=== PATIENT | male | born 1960 | race African-American/Black ===

== ENCOUNTER → 2016-04-29 | Outpatient (CLI) | payer OTHER ==
[~2016-04-29] MED LIST: ALPRAZOLAM2 MG PO; AMLODIPINE BESY10 MG PO; AUGMENTIN875 MG PO; COLACE100 MG PO; ENDOCET 5-3251 EACH PO; FINASTERIDE5 MG PO; GABAPENTIN600 MG PO; GABAPENTIN800 MG PO; HUMALOG100 UNIT/2 SC; HUMULIN N100 UNIT/2 SC; KEFLEX500 MG PO; LANTUS 10100 UNITS/ SC; LANTUS 3 M100 UNITS1 SQ; LIBRIUM25 MG PO; LISINOPRIL40 MG PO; MELOXICAM7.5 MG PO; METFORMIN HCL1000 MG PO; MONTELUKAST SOD10 MG PO; MORPHINE SULFAT15 M1 PO; OMEPRAZOLE40 M1 PO; OXAYDO5 MG PO; OXYCODONE HCL10 MG PO; ULTRAM50 MG PO; VALSARTAN160 MG PO; VYVANSE70 MG PO
== END | disposition home or self-care (01) ==
LOC: CDC 09:47
DX: Z01.810 Encounter for preprocedural cardiovascular examination (principal); K40.90 Unilateral inguinal hernia, without obstruction or gangrene, not specified as recurrent
CPT/HCPCS: 93000

== ENCOUNTER 2016-04-30 08:54 | Day surgery (SDC) | payer OTHER ==
[~2016-04-30] VITALS: Ht 190.5 cm; Wt 95.3 kg
[~2016-04-30 08:54] MED LIST changes: -AUGMENTIN875 MG PO; -COLACE100 MG PO; -LANTUS 3 M100 UNITS1 SQ; -OXAYDO5 MG PO
[2016-04-30 10:12] VITALS: BP 139/91
[2016-04-30 10:54] LABS: POINT-OF-CARE METER ID UU14174212
[2016-04-30] MEDS ORDERED: LANTUS 3 M100 UNITS1 SQ (10:54)
[2016-04-30 13:08] LABS: POINT-OF-CARE METER ID UU13113655; POINT-OF-CARE USER ID ENVKLS06
[2016-04-30 13:08] LABS: POINT-OF-CARE METER ID UU13113655; POINT-OF-CARE USER ID ENVKLS06
[2016-04-30] MEDS ORDERED: OXAYDO5 MG PO (14:19)
[2016-04-30] MEDS ORDERED: COLACE100 MG PO (14:19)
[2016-04-30 15:35] VITALS: BP 175/92
[2016-04-30 16:19] VITALS: BP 181/92
== END 2016-04-30 16:20 | disposition home or self-care (01) ==
LOC: SDC 08:54
PROVIDERS: Surgery
PROC: 0YQ50ZZ Repair Right Inguinal Region, Open Approach (ICD-10-PCS; principal; 2016-04-30)
DX: K40.90 Unilateral inguinal hernia, without obstruction or gangrene, not specified as recurrent (principal); D17.6 Benign lipomatous neoplasm of spermatic cord; F17.200 Nicotine dependence, unspecified, uncomplicated; K21.9 Gastro-esophageal reflux disease without esophagitis; M51.36 Other intervertebral disc degeneration, lumbar region; I10 Essential (primary) hypertension; E11.40 Type 2 diabetes mellitus with diabetic neuropathy, unspecified
CPT/HCPCS: 82948; 88302; 88304; C1781; J0330; J0690; J1170; J1815; J1885; J2250; J2405; J3010

== ENCOUNTER 2016-05-01 01:55 | Day surgery (SDC) | payer OTHER ==
[~2016-05-01] VITALS: Ht 190.5 cm; Wt 92.6 kg
[~2016-05-01 01:55] MED LIST changes: +COLACE100 MG PO; +LANTUS 3 M100 UNITS1 SQ; +OXAYDO5 MG PO
[2016-05-01 02:27] LABS: HEMATOCRIT 35.9 % (38.0-50.0); MCH 30.7 PG (29.0-34.0); MCHC 34.8 G/DL (30.0-36.0); MCV 88.2 FL (86-99); MEAN PLAT.VOLUME 10.2 uM^3 (9.0-12.4); PLATELET COUNT 177 K/uL (156-360); RBC DIS.WIDTH-CV 12.8 % (11.8-14.6); RBC DIS.WIDTH-SD 40.3 % (39-53); RED BLOOD COUNT 4.07 M/uL (4.00-5.50); WHITE BLOOD COUNT 8.4 K/uL (4.1-10.2)
[2016-05-01 02:36] LABS: CHLORIDE 97 mEq/L (99-109); POTASSIUM 4.1 mEq/L (3.7-5.4); SODIUM 131 mEq/L (136-147)
[2016-05-01 02:38] LABS: GLUCOSE 273 mg/dL (70-99)
[2016-05-01 02:39] LABS: ANION GAP 16 MEQ/L (2-14)
[2016-05-01 02:40] LABS: TOTAL BILIRUBIN 0.7 mg/dL (0.0-1.0)
[2016-05-01 02:41] LABS: ALKALINE PHOSPHATASE 63 IU/L (3-129)
[2016-05-01 02:42] LABS: GFR ESTIMATE (CALCULATED) > 59 mL/min/
[2016-05-01 02:43] LABS: UREA NITROGEN (BUN) 8 mg/dL (9-23)
[2016-05-01 02:45] LABS: LIPASE 5 U/L (1.0-51.0)
[2016-05-01 04:24] LABS: PROTHROMBIN TIME 10.4 (9.2-11.2); PTT 23.5 (25-32)
[2016-05-01 04:59] LABS: ADD MIUA? NO; BILIRUBIN NEGATIVE; BLOOD NEGATIVE; COLOR YELLOW ((YELLOW)); GLUCOSE (STRIP) >=1000; KETONES 40; LEUKOCYTES NEGATIVE; NITRITE NEGATIVE; PROTEIN (STRIP) NEGATIVE; UCUL ADDED? NO; UROBILINOGEN 0.2 MG/DL (0.2-1.0)
[2016-05-01 15:00] VITALS: BP 171/87
[2016-05-01 15:11] LABS: MCH 30.7 PG (29.0-34.0); MCHC 34.1 G/DL (30.0-36.0); MCV 90.1 FL (86-99); MEAN PLAT.VOLUME 10.1 uM^3 (9.0-12.4); PLATELET COUNT 134 K/uL (156-360); RBC DIS.WIDTH-CV 13.2 % (11.8-14.6); RBC DIS.WIDTH-SD 43.5 % (39-53); RED BLOOD COUNT 3.55 M/uL (4.00-5.50); WHITE BLOOD COUNT 6.3 K/uL (4.1-10.2)
[2016-05-01 15:33] LABS: ALKALINE PHOSPHATASE 44 IU/L (3-129); ANION GAP 7 MEQ/L (2-14); CHLORIDE 98 MEQ/L (99-109); GFR ESTIMATE (CALCULATED) > 59 mL/min/; GLUCOSE 169 mg/dL (70-99); POTASSIUM 4.1 MEQ/L (3.7-5.4); SAMPLE HEMOLYSIS CHECK 0; SAMPLE ICTERIC CHECK 0; SAMPLE LIPEMIA CHECK 0; SODIUM 134 MEQ/L (136-147); TOTAL BILIRUBIN 0.6 MG/DL (0.0-1.0); UREA NITROGEN (BUN) 7 mg/dL (9-23)
[2016-05-01 20:04] VITALS: BP 142/81
[2016-05-01 22:59] VITALS: BP 132/81
[2016-05-02 06:48] LABS: HEMATOCRIT 30.7 % (38.0-50.0); MCH 30.8 PG (29.0-34.0); MCHC 34.2 G/DL (30.0-36.0); PLATELET COUNT 141 K/uL (156-360); RBC DIS.WIDTH-CV 13.2 % (11.8-14.6); RBC DIS.WIDTH-SD 42.9 % (39-53); RED BLOOD COUNT 3.41 M/uL (4.00-5.50); WHITE BLOOD COUNT 7.8 K/uL (4.1-10.2)
[2016-05-02 07:01] LABS: INTER. NORMALIZED RATIO 1.1; PROTHROMBIN TIME 10.7 (9.2-11.2); PTT 27.3 (25-32)
[2016-05-02] MEDS ORDERED: AUGMENTIN875 MG PO (07:43)
[2016-05-02 08:02] VITALS: BP 147/80
[2016-05-02 08:59] LABS: ALKALINE PHOSPHATASE 45 IU/L (3-129); ANION GAP 4 MEQ/L (2-14); CHLORIDE 98 MEQ/L (99-109); GFR ESTIMATE (CALCULATED) > 59 mL/min/; GLUCOSE 168 mg/dL (70-99); SAMPLE HEMOLYSIS CHECK 0; SAMPLE ICTERIC CHECK 0; SAMPLE LIPEMIA CHECK 0; SODIUM 132 MEQ/L (136-147); TOTAL BILIRUBIN 0.6 MG/DL (0.0-1.0); UREA NITROGEN (BUN) 6 mg/dL (9-23)
== END 2016-05-02 09:20 | disposition home or self-care (01) ==
LOC: EME → EDBD 01:55 → SDC 06:05 → EME 06:05 → 2EAST 07:30 → 2SOUTH 07:30 → 2EAST 14:58
PROVIDERS: Emergency Medicine; Surgery
DX: M96.840 Postprocedural hematoma of a musculoskeletal structure following a musculoskeletal system procedure (principal); Y83.8 Other surgical procedures as the cause of abnormal reaction of the patient, or of later complication, without mention of misadventure at the time of the procedure; Z98.890 Other specified postprocedural states; I10 Essential (primary) hypertension; E11.40 Type 2 diabetes mellitus with diabetic neuropathy, unspecified; K21.9 Gastro-esophageal reflux disease without esophagitis; F31.9 Bipolar disorder, unspecified; M54.5 Low back pain
CPT/HCPCS: 74177; 80053; 81003; 82948; 83605; 83690; 85027; 85610; 85730; 86850; 86900; 86901; 93005; 99281; 99285; G0378; J0330; J0690; J1170; J1200; J1815; J2270; J2405; J3010; J3480; J7030

== ENCOUNTER 2016-06-05 16:25 | Emergency (ER) | payer OTHER ==
[~2016-06-05] VITALS: Ht 190.5 cm; Wt 90.0 kg
[~2016-06-05 16:25] MED LIST changes: +AUGMENTIN875 MG PO
[2016-06-05] MEDS ORDERED: LANTUS 10100 UNITS/ SC (17:33)
[2016-06-05] MEDS ORDERED: NOVOLOG PE100 UNITS/ SC (17:33)
[2016-06-05 17:38] LABS: HEMATOCRIT 38.2 % (38.0-50.0); MCH 29.5 PG (29.0-34.0); MCV 86.6 FL (86-99); MEAN PLAT.VOLUME 9.5 uM^3 (9.0-12.4); PLATELET COUNT 183 K/uL (156-360); RBC DIS.WIDTH-SD 43.6 % (39-53); RED BLOOD COUNT 4.41 M/uL (4.00-5.50); WHITE BLOOD COUNT 5.6 K/uL (4.1-10.2)
[2016-06-05 17:46] LABS: CHLORIDE 103 mEq/L (99-109); POTASSIUM 4.5 mEq/L (3.7-5.4); SODIUM 137 mEq/L (136-147)
[2016-06-05 17:48] LABS: GLUCOSE 393 mg/dL (70-99)
[2016-06-05 17:49] LABS: ANION GAP 12 MEQ/L (2-14)
[2016-06-05 17:52] LABS: GFR ESTIMATE (CALCULATED) > 59 mL/min/
[2016-06-05 17:53] LABS: UREA NITROGEN (BUN) 13 mg/dL (9-23)
[2016-06-05] MEDS ORDERED: CLEOCIN300 MG PO (19:47)
[2016-06-05 20:01] VITALS: BP 150/92
== END 2016-06-05 20:04 | disposition home or self-care (01) ==
LOC: EME 16:25
PROVIDERS: Physician Assistant
DX: E11.621 Type 2 diabetes mellitus with foot ulcer (principal); L97.519 Non-pressure chronic ulcer of other part of right foot with unspecified severity; Z79.4 Long term (current) use of insulin; L03.115 Cellulitis of right lower limb; F17.200 Nicotine dependence, unspecified, uncomplicated; I10 Essential (primary) hypertension
CPT/HCPCS: 73630; 80048; 83605; 85027; 87040; 99281; 99285; J7030

== ENCOUNTER 2016-08-31 07:51 | Emergency (ER) | payer OTHER ==
[~2016-08-31] VITALS: Ht 190.5 cm; Wt 90.9 kg
[~2016-08-31 07:51] MED LIST changes: +CLEOCIN300 MG PO; +NOVOLOG PE100 UNITS/ SC
[2016-08-31 08:34] LABS: EOSINOPHIL COUNT 0.2 K/uL (0-0.3); HEMATOCRIT 44.7 % (38.0-50.0); IMMATURE GRANULOCYTE (%) 0.3 % (0.0-0.7); INSTRUMENT ABS NEUTROPHIL CT 4.6 K/uL; LYMPHOCYTE COUNT 1.8 K/uL (1.0-2.8); MCH 28.6 PG (29.0-34.0); MEAN PLAT.VOLUME 9.5 uM^3 (9.0-12.4); MONOCYTE (%) 10.6 % (3-12); MONOCYTE COUNT 0.8 K/uL (0-0.8); NEUTROPHIL (%) 62.3 % (45-76); NEUTROPHIL COUNT 4.6 K/uL (1.8-6.4); PLATELET COUNT 178 K/uL (156-360); RBC DIS.WIDTH-CV 14.6 % (11.8-14.6); RBC DIS.WIDTH-SD 44.3 % (39-53); RED BLOOD COUNT 5.32 M/uL (4.00-5.50); WHITE BLOOD COUNT 7.5 K/uL (4.1-10.2)
[2016-08-31 08:42] LABS: CHLORIDE 102 mEq/L (99-109)
[2016-08-31 08:43] LABS: SODIUM 135 mEq/L (136-147)
[2016-08-31 08:44] LABS: GLUCOSE 253 mg/dL (70-99)
[2016-08-31 08:46] LABS: ANION GAP 10 MEQ/L (2-14)
[2016-08-31 08:48] LABS: GFR ESTIMATE (CALCULATED) > 59 mL/min/
[2016-08-31 08:49] LABS: UREA NITROGEN (BUN) 10 mg/dL (9-23)
[2016-08-31 09:45] VITALS: BP 158/96
[2016-08-31 10:13] LABS: C-REACTIVE PROTEIN 38.2 MG/L (0-10)
== END 2016-08-31 09:46 | disposition home or self-care (01) ==
LOC: EME 07:51
PROVIDERS: Physician Assistant
DX: E11.621 Type 2 diabetes mellitus with foot ulcer (principal); L97.519 Non-pressure chronic ulcer of other part of right foot with unspecified severity; E11.628 Type 2 diabetes mellitus with other skin complications; L03.031 Cellulitis of right toe; E11.40 Type 2 diabetes mellitus with diabetic neuropathy, unspecified; Z88.6 Allergy status to analgesic agent; Z79.84 Long term (current) use of oral hypoglycemic drugs; Z79.4 Long term (current) use of insulin; F17.200 Nicotine dependence, unspecified, uncomplicated
CPT/HCPCS: 73660; 80048; 85025; 86140; 99281; 99283

== ENCOUNTER 2016-09-03 17:06 | Inpatient (IN) | payer OTHER ==
[~2016-09-03] VITALS: Ht 193 cm; Wt 85.6 kg
[2016-09-03 18:08] LABS: EOSINOPHIL (%) 3.5 % (0-5); EOSINOPHIL COUNT 0.3 K/uL (0-0.3); HEMATOCRIT 43.6 % (38.0-50.0); IMMATURE GRANULOCYTE (%) 0.3 % (0.0-0.7); INSTRUMENT ABS NEUTROPHIL CT 4.5 K/uL; LYMPHOCYTE COUNT 1.8 K/uL (1.0-2.8); MCH 28.3 PG (29.0-34.0); MCHC 33.3 G/DL (30.0-36.0); MONOCYTE (%) 8.9 % (3-12); MONOCYTE COUNT 0.6 K/uL (0-0.8); NEUTROPHIL (%) 62.4 % (45-76); NEUTROPHIL COUNT 4.5 K/uL (1.8-6.4); PLATELET COUNT 206 K/uL (156-360); RBC DIS.WIDTH-CV 14.3 % (11.8-14.6); RBC DIS.WIDTH-SD 43.9 % (39-53); RED BLOOD COUNT 5.13 M/uL (4.00-5.50); WHITE BLOOD COUNT 7.2 K/uL (4.1-10.2)
[2016-09-03 18:19] LABS: CHLORIDE 99 mEq/L (99-109); POTASSIUM 4.5 mEq/L (3.7-5.4); SODIUM 133 mEq/L (136-147)
[2016-09-03 18:22] LABS: ANION GAP 13 MEQ/L (2-14)
[2016-09-03 18:25] LABS: GFR ESTIMATE (CALCULATED) > 59 mL/min/
[2016-09-03 18:33] LABS: UREA NITROGEN (BUN) 23 mg/dL (9-23)
[2016-09-03 18:40] LABS: GLUCOSE 445 mg/dL (70-99)
[2016-09-03 19:02] LABS: CARBON DIOXIDE (BICARBONATE) 24.9 MEQ/L (20-31)
[2016-09-03] MEDS ORDERED: TRAMADOL HCL50 MG PO (20:59)
[2016-09-03] MEDS ORDERED: AMOX TR-K CLV1 EAC4 PO (20:59)
[2016-09-03 22:00] VITALS: BP 168/99
[2016-09-03 23:00] VITALS: BP 171/113
[2016-09-03 23:19] LABS: C-REACTIVE PROTEIN 45.1 MG/L (0-10)
[2016-09-03 23:53] LABS: POINT-OF-CARE METER ID UU13113725
[2016-09-04 00:19] VITALS: BP 154/78
[2016-09-04 00:23] LABS: ERTH.SED.RATE 59 MM/HR (0-20)
[2016-09-04 04:15] VITALS: BP 139/72
[2016-09-04 06:06] LABS: POINT-OF-CARE METER ID UU13113725
[2016-09-04 07:52] VITALS: BP 137/78
[2016-09-04 08:39] LABS: EOSINOPHIL (%) 3.6 % (0-5); EOSINOPHIL COUNT 0.2 K/uL (0-0.3); IMMATURE GRANULOCYTE (%) 0.3 % (0.0-0.7); INSTRUMENT ABS NEUTROPHIL CT 3.5 K/uL; LYMPHOCYTE COUNT 1.9 K/uL (1.0-2.8); MCH 28.8 PG (29.0-34.0); MCHC 33.2 G/DL (30.0-36.0); MEAN PLAT.VOLUME 10.2 uM^3 (9.0-12.4); MONOCYTE (%) 9.9 % (3-12); MONOCYTE COUNT 0.6 K/uL (0-0.8); NEUTROPHIL (%) 55.7 % (45-76); NEUTROPHIL COUNT 3.5 K/uL (1.8-6.4); PLATELET COUNT 175 K/uL (156-360); RBC DIS.WIDTH-CV 14.4 % (11.8-14.6); RBC DIS.WIDTH-SD 46.2 % (39-53); RED BLOOD COUNT 4.37 M/uL (4.00-5.50); WHITE BLOOD COUNT 6.4 K/uL (4.1-10.2)
[2016-09-04 09:09] LABS: ANION GAP 9 MEQ/L (2-14); CHLORIDE 99 MEQ/L (99-109); GFR ESTIMATE (CALCULATED) > 59 mL/min/; POTASSIUM 4.3 MEQ/L (3.7-5.4); SAMPLE HEMOLYSIS CHECK 0; SAMPLE ICTERIC CHECK 0; SAMPLE LIPEMIA CHECK 0; SODIUM 133 MEQ/L (136-147); UREA NITROGEN (BUN) 13 mg/dL (9-23)
[2016-09-04 09:14] LABS: GLUCOSE 219 mg/dL (70-99)
[2016-09-04] MEDS ORDERED: GABAPENTIN300 MG PO (11:17)
[2016-09-04] MEDS ORDERED: EXTRA STRENGTH500 M1 PO (11:18)
[2016-09-04] MEDS ORDERED: VALSARTAN160 MG PO (11:22)
[2016-09-04] MEDS ORDERED: OMEPRAZOLE40 M1 PO (11:22)
[2016-09-04] MEDS ORDERED: METFORMIN HCL500 MG PO (11:23)
[2016-09-04] MEDS ORDERED: FINASTERIDE5 MG PO (11:23)
[2016-09-04] MEDS ORDERED: NORVASC10 MG PO (11:24)
[2016-09-04] MEDS ORDERED: SINGULAIR10 MG PO (11:24)
[2016-09-04] MEDS ORDERED: ATORVASTATIN CA20 MG PO (11:24)
[2016-09-04] MEDS ORDERED: METFORMIN HCL1000 MG PO (11:48)
[2016-09-05] MEDS ORDERED: HIBICLENS118 ML TP (13:58)
[2016-09-05] MEDS ORDERED: BACTRIM,SEPT1 TABLET PO (13:58)
[2016-09-05] MEDS ORDERED: PAIN RELIEF650 MG PO (13:58)
[2016-09-05] MEDS ORDERED: NICOTINE PATCH1 EAC2 TD (13:58)
[2016-09-05] MEDS ORDERED: [UNRECOGNIZED DRUG - OTHER] MC (14:04)
== END 2016-09-04 07:52 | disposition left against medical advice (07) | DRG 603 ==
LOC: EME → EDBD 17:06 → EME 17:06 → EDOF 21:24 → 5EAST 21:24
PROVIDERS: Emergency Medicine; Hospitalist
DX: L03.031 Cellulitis of right toe (principal); E11.628 Type 2 diabetes mellitus with other skin complications; E11.65 Type 2 diabetes mellitus with hyperglycemia; I10 Essential (primary) hypertension; S90.451A Superficial foreign body, right great toe, initial encounter; F17.210 Nicotine dependence, cigarettes, uncomplicated
CPT/HCPCS: 80048; 82803; 82948; 83605; 85025; 85651; 86140; 87040; 93971; 99281; 99285; J0295; J1170; J1650; J1815; J2543; J3010; J3370; J7030; J7050; J7120

== ENCOUNTER 2016-09-04 09:56 | Observation (INO) | payer OTHER ==
[~2016-09-04] VITALS: Ht 190.5 cm; Wt 88.8 kg
[~2016-09-04 09:56] MED LIST changes: +AMOX TR-K CLV1 EAC4 PO; +TRAMADOL HCL50 MG PO
[2016-09-04 11:01] LABS: EOSINOPHIL (%) 5.2 % (0-5); EOSINOPHIL COUNT 0.3 K/uL (0-0.3); HEMATOCRIT 38.9 % (38.0-50.0); IMMATURE GRANULOCYTE (%) 0.4 % (0.0-0.7); INSTRUMENT ABS NEUTROPHIL CT 2.8 K/uL; LYMPHOCYTE COUNT 1.7 K/uL (1.0-2.8); MCH 28.1 PG (29.0-34.0); MCHC 33.2 G/DL (30.0-36.0); MCV 84.7 FL (86-99); MEAN PLAT.VOLUME 9.5 uM^3 (9.0-12.4); MONOCYTE (%) 10.1 % (3-12); MONOCYTE COUNT 0.5 K/uL (0-0.8); NEUTROPHIL (%) 51.5 % (45-76); NEUTROPHIL COUNT 2.8 K/uL (1.8-6.4); PLATELET COUNT 170 K/uL (156-360); RBC DIS.WIDTH-CV 14.1 % (11.8-14.6); RBC DIS.WIDTH-SD 43.7 % (39-53); RED BLOOD COUNT 4.59 M/uL (4.00-5.50); WHITE BLOOD COUNT 5.3 K/uL (4.1-10.2)
[2016-09-04 11:12] LABS: CHLORIDE 103 mEq/L (99-109); POTASSIUM 4.6 mEq/L (3.7-5.4); SODIUM 134 mEq/L (136-147)
[2016-09-04 11:13] LABS: GLUCOSE 152 mg/dL (70-99)
[2016-09-04 11:15] LABS: ANION GAP 10 MEQ/L (2-14)
[2016-09-04 11:17] LABS: GFR ESTIMATE (CALCULATED) > 59 mL/min/
[2016-09-04] MEDS ORDERED: GABAPENTIN300 MG PO (11:17)
[2016-09-04 11:18] LABS: UREA NITROGEN (BUN) 11 mg/dL (9-23)
[2016-09-04] MEDS ORDERED: EXTRA STRENGTH500 M1 PO (11:18)
[2016-09-04] MEDS ORDERED: OMEPRAZOLE40 M1 PO (11:22)
[2016-09-04] MEDS ORDERED: VALSARTAN160 MG PO (11:22)
[2016-09-04] MEDS ORDERED: METFORMIN HCL500 MG PO (11:23)
[2016-09-04] MEDS ORDERED: FINASTERIDE5 MG PO (11:23)
[2016-09-04] MEDS ORDERED: NORVASC10 MG PO (11:24)
[2016-09-04] MEDS ORDERED: SINGULAIR10 MG PO (11:24)
[2016-09-04] MEDS ORDERED: ATORVASTATIN CA20 MG PO (11:24)
[2016-09-04] MEDS ORDERED: METFORMIN HCL1000 MG PO (11:48)
[2016-09-04 20:00] VITALS: BP 129/70
[2016-09-04 21:11] LABS: POINT-OF-CARE METER ID UU13113725
[2016-09-05 00:05] VITALS: BP 140/84
[2016-09-05 06:13] LABS: POINT-OF-CARE METER ID UU13113725
[2016-09-05 07:19] VITALS: BP 155/86
[2016-09-05 12:58] LABS: GFR ESTIMATE (CALCULATED) > 59 mL/min/
[2016-09-05 12:59] LABS: UREA NITROGEN (BUN) 11 mg/dL (9-23)
[2016-09-05] MEDS ORDERED: HIBICLENS118 ML TP (13:58)
[2016-09-05] MEDS ORDERED: BACTRIM,SEPT1 TABLET PO (13:58)
[2016-09-05] MEDS ORDERED: NICOTINE PATCH1 EAC2 TD (13:58)
[2016-09-05] MEDS ORDERED: PAIN RELIEF650 MG PO (13:58)
[2016-09-05] MEDS ORDERED: [UNRECOGNIZED DRUG - OTHER] MC (14:04)
== END 2016-09-05 16:39 | disposition home or self-care (01) ==
LOC: EME 09:56 → 5EAST 10:39 → EDOF 10:39 → 5EAST 10:39
PROVIDERS: Emergency Medicine; Hospitalist; Internal Medicine
DX: L03.115 Cellulitis of right lower limb (principal); E11.622 Type 2 diabetes mellitus with other skin ulcer; L97.519 Non-pressure chronic ulcer of other part of right foot with unspecified severity; E11.65 Type 2 diabetes mellitus with hyperglycemia; F17.200 Nicotine dependence, unspecified, uncomplicated; I10 Essential (primary) hypertension
CPT/HCPCS: 73720; 80048 91; 82565; 82948; 84520; 85025 91; 87040; 87070; 87075; 87076; 87077; 87147; 87186; 87205; 93926; G0378; J1650; J1815; J2543; J3370; J7050

== ENCOUNTER 2017-04-19 15:31 | Emergency (ER) | payer OTHER ==
[~2017-04-19] VITALS: Ht 190.5 cm; Wt 90.3 kg
[~2017-04-19 15:31] MED LIST changes: +ATORVASTATIN CA20 MG PO; +BACTRIM,SEPT1 TABLET PO; +EXTRA STRENGTH500 M1 PO; +GABAPENTIN300 MG PO; +HIBICLENS118 ML TP; +METFORMIN HCL500 MG PO; +NICOTINE PATCH1 EAC2 TD; +NORVASC10 MG PO; +PAIN RELIEF650 MG PO; +SINGULAIR10 MG PO; +[UNRECOGNIZED DRUG - OTHER] MC
[2017-04-19 16:40] LABS: BASOPHIL (%) 0.6 % (0-1); EOSINOPHIL (%) 3.6 % (0-5); EOSINOPHIL COUNT 0.2 K/uL (0-0.3); HEMATOCRIT 41.2 % (38.0-50.0); HEMOGLOBIN 14.1 G/DL (12.5-16.6); IMMATURE GRANULOCYTE (%) 0.2 % (0.0-0.7); LYMPHOCYTE (%) 42.8 % (15-42); MCH 29.9 PG (29.0-34.0); MCHC 34.2 G/DL (30.0-36.0); MCV 87.5 FL (86-99); MONOCYTE COUNT 0.5 K/uL (0-0.8); NEUTROPHIL (%) 41.8 % (45-76); PLATELET COUNT 178 K/uL (156-360); RBC DIS.WIDTH-CV 13.2 % (11.8-14.6); RBC DIS.WIDTH-SD 42.6 % (39-53); RED BLOOD COUNT 4.71 M/uL (4.00-5.50); WHITE BLOOD COUNT 4.7 K/uL (4.1-10.2)
[2017-04-19 16:51] LABS: CHLORIDE 103 mEq/L (99-109); POTASSIUM 4.5 mEq/L (3.7-5.4); SODIUM 133 mEq/L (136-147)
[2017-04-19 16:57] LABS: GFR ESTIMATE (CALCULATED) > 59 mL/min/ (58.99-99999)
[2017-04-19 16:58] LABS: UREA NITROGEN (BUN) 18 mg/dL (9-23)
[2017-04-19 17:07] LABS: GLUCOSE 426 mg/dL (70-99)
[2017-04-19 17:19] VITALS: BP 158/96
[2017-04-19 18:05] LABS: ERTH.SED.RATE 14 MM/HR (0-20)
== END 2017-04-19 17:20 | disposition left against medical advice (07) ==
LOC: EME 15:31
PROVIDERS: Emergency Medicine
DX: E11.40 Type 2 diabetes mellitus with diabetic neuropathy, unspecified (principal); M79.605 Pain in left leg; M79.604 Pain in right leg; I10 Essential (primary) hypertension; E78.5 Hyperlipidemia, unspecified; K21.9 Gastro-esophageal reflux disease without esophagitis; F32.9 Major depressive disorder, single episode, unspecified; F17.200 Nicotine dependence, unspecified, uncomplicated; Z79.4 Long term (current) use of insulin; Z88.6 Allergy status to analgesic agent
CPT/HCPCS: 73630; 80048; 82948; 85025; 85651; 86140; 99281; 99283

== ENCOUNTER 2017-07-10 18:45 | Emergency (ER) | payer OTHER ==
[~2017-07-10] VITALS: Ht 190.5 cm; Wt 94.5 kg
[2017-07-10] MEDS ORDERED: BACTRIM,SEPT1 TABLET PO (19:37)
[2017-07-10 20:22] VITALS: BP 132/79
== END 2017-07-10 20:25 | disposition home or self-care (01) ==
LOC: EME 18:45
DX: E11.621 Type 2 diabetes mellitus with foot ulcer (principal); L97.519 Non-pressure chronic ulcer of other part of right foot with unspecified severity; L03.115 Cellulitis of right lower limb; I10 Essential (primary) hypertension; K21.9 Gastro-esophageal reflux disease without esophagitis; E78.5 Hyperlipidemia, unspecified; F32.9 Major depressive disorder, single episode, unspecified; F17.200 Nicotine dependence, unspecified, uncomplicated; Z79.4 Long term (current) use of insulin; Z88.6 Allergy status to analgesic agent
CPT/HCPCS: 99281; 99284

== ENCOUNTER 2017-07-29 14:38 | Emergency (ER) | payer OTHER ==
[~2017-07-29] VITALS: Ht 190.5 cm; Wt 96.4 kg
[2017-07-29 15:00] LABS: APPEARANCE CLEAR ((CLEAR)); BILIRUBIN NEGATIVE; BLOOD NEGATIVE; COLOR YELLOW ((YELLOW)); GLUCOSE (STRIP) >=500; KETONES NEGATIVE; LEUKOCYTES NEGATIVE; NITRITE NEGATIVE; PROTEIN (STRIP) NEGATIVE; SPECIFIC GRAVITY 1.031 (1.000-1.030); UCUL ADDED? NO; UROBILINOGEN 0.2 MG/DL (0.2-1.0)
[2017-07-29 15:14] LABS: HEMOGLOBIN 15.3 G/DL (12.5-16.6); MCH 30.4 PG (29.0-34.0); MCHC 34.8 G/DL (30.0-36.0); MCV 87.5 FL (86-99); PLATELET COUNT 204 K/uL (156-360); RBC DIS.WIDTH-CV 13.3 % (11.8-14.6); RED BLOOD COUNT 5.03 M/uL (4.00-5.50); WHITE BLOOD COUNT 6.5 K/uL (4.1-10.2)
[2017-07-29 15:31] LABS: CHLORIDE 101 mEq/L (99-109); POTASSIUM 3.9 mEq/L (3.7-5.4); SODIUM 141 mEq/L (136-147)
[2017-07-29 15:32] LABS: GLUCOSE 262 mg/dL (70-99)
[2017-07-29 15:36] LABS: GFR ESTIMATE (CALCULATED) > 59 mL/min/ (58.99-99999)
[2017-07-29 15:37] LABS: UREA NITROGEN (BUN) 10 mg/dL (9-23)
[2017-07-29] MEDS ORDERED: DOXYCYCLINE HY100 MG PO (18:17)
[2017-07-29] MEDS ORDERED: FLEXERIL10 MG PO (18:17)
[2017-07-29 18:31] VITALS: BP 177/114
== END 2017-07-29 18:31 | disposition home or self-care (01) ==
LOC: EME 14:38
DX: E11.621 Type 2 diabetes mellitus with foot ulcer (principal); L97.519 Non-pressure chronic ulcer of other part of right foot with unspecified severity; R10.9 Unspecified abdominal pain; M54.5 Low back pain; K21.9 Gastro-esophageal reflux disease without esophagitis; I10 Essential (primary) hypertension; E78.5 Hyperlipidemia, unspecified; F32.9 Major depressive disorder, single episode, unspecified; F17.200 Nicotine dependence, unspecified, uncomplicated; Z79.4 Long term (current) use of insulin; Z88.6 Allergy status to analgesic agent
CPT/HCPCS: 74018; 80048; 81003; 85027; 99281; 99283

== ENCOUNTER 2017-09-16 20:04 | Inpatient (IN) | payer OTHER ==
[~2017-09-16] VITALS: Ht 190.5 cm; Wt 96.3 kg
[~2017-09-16 20:04] MED LIST changes: +DOXYCYCLINE HY100 MG PO; +FLEXERIL10 MG PO
[2017-09-16 21:54] LABS: BASOPHIL (%) 0.5 % (0-1); EOSINOPHIL (%) 3.4 % (0-5); EOSINOPHIL COUNT 0.3 K/uL (0-0.3); HEMATOCRIT 43.9 % (38.0-50.0); HEMOGLOBIN 15.4 G/DL (12.5-16.6); IMMATURE GRANULOCYTE (%) 0.4 % (0.0-0.7); LYMPHOCYTE (%) 22.8 % (15-42); LYMPHOCYTE COUNT 1.9 K/uL (1.0-2.8); MCH 30.2 PG (29.0-34.0); MCHC 35.1 G/DL (30.0-36.0); MCV 86.1 FL (86-99); MONOCYTE (%) 9.1 % (3-12); MONOCYTE COUNT 0.7 K/uL (0-0.8); NEUTROPHIL (%) 63.8 % (45-76); NEUTROPHIL COUNT 5.2 K/uL (1.8-6.4); PLATELET COUNT 214 K/uL (156-360); RBC DIS.WIDTH-CV 13.3 % (11.8-14.6); RBC DIS.WIDTH-SD 42.3 % (39-53); WHITE BLOOD COUNT 8.2 K/uL (4.1-10.2)
[2017-09-16 22:06] LABS: ALBUMIN 4.1 g/dL (3.2-4.8); CHLORIDE 100 mEq/L (99-109); POTASSIUM 3.9 mEq/L (3.7-5.4); SODIUM 133 mEq/L (136-147)
[2017-09-16 22:07] LABS: PTT 27.4 SEC (25-37)
[2017-09-16 22:08] LABS: GLUCOSE 277 mg/dL (70-99)
[2017-09-16 22:09] LABS: TOTAL PROTEIN 8.2 g/dL (6.4-8.3)
[2017-09-16 22:10] LABS: TOTAL BILIRUBIN 0.4 mg/dL (0.0-1.0)
[2017-09-16 22:12] LABS: ALKALINE PHOSPHATASE 93 IU/L (3-129); GFR ESTIMATE (CALCULATED) > 59 mL/min/ (58.99-99999)
[2017-09-16 22:13] LABS: UREA NITROGEN (BUN) 10 mg/dL (9-23)
[2017-09-16 22:14] LABS: AST (GOT) 10 IU/L (2-34)
[2017-09-16 22:15] LABS: ALT (GPT) 12 IU/L (3-49); LIPASE 14 U/L (1.0-51.0)
[2017-09-16 22:39] LABS: TROP-I INTERPRETATION NEGATIVE; TROPONIN-I < 0.01 ng/mL (0.0-0.30)
[2017-09-16] MEDS ORDERED: LANTUS 10100 UNITS/ SC (23:03)
[2017-09-16] MEDS ORDERED: GABAPENTIN800 MG PO (23:04)
[2017-09-16] MEDS ORDERED: OXYCODONE-APAP1 EAC6 PO (23:05)
[2017-09-16] MEDS ORDERED: AMMONIUM LACTA140 GM TP (23:06)
[2017-09-16 23:08] LABS: APPEARANCE CLEAR ((CLEAR)); BILIRUBIN NEGATIVE; BLOOD SMALL; COLOR YELLOW ((YELLOW)); GLUCOSE (STRIP) >=500; KETONES NEGATIVE; LEUKOCYTES NEGATIVE; NITRITE NEGATIVE; PROTEIN (STRIP) 30; SPECIFIC GRAVITY 1.032 (1.000-1.030); UROBILINOGEN 0.2 MG/DL (0.2-1.0)
[2017-09-16 23:17] LABS: BACTERIA RARE /HPF; EPITHELIAL CELLS NONE SEEN /HPF; MUCUS NONE SEEN /LPF; RED BLOOD CELLS 0-5 /HPF (0-5); UCUL ADDED? NO; WHITE BLOOD CELLS 0-5 /HPF (0-5)
[2017-09-17] VITALS (9 sets, daily range): BP systolic 136–191; BP diastolic 82–102
[2017-09-17 02:24] LABS: C-REACTIVE PROTEIN 92.1 MG/L (0-10)
[2017-09-17] MEDS ORDERED: PRILOSEC OTC20 MG PO (03:07)
[2017-09-17 10:29] LABS: HEMOGLOBIN A1c (GLYCOHEMOGLOB) 9.2 % (Below 5.7)
[2017-09-18 06:01] LABS: BASOPHIL (%) 0.8 % (0-1); EOSINOPHIL (%) 6.8 % (0-5); EOSINOPHIL COUNT 0.4 K/uL (0-0.3); HEMATOCRIT 41.9 % (38.0-50.0); HEMOGLOBIN 14.1 G/DL (12.5-16.6); IMMATURE GRANULOCYTE (%) 0.2 % (0.0-0.7); LYMPHOCYTE (%) 27.8 % (15-42); LYMPHOCYTE COUNT 1.4 K/uL (1.0-2.8); MCH 29.3 PG (29.0-34.0); MCHC 33.7 G/DL (30.0-36.0); MCV 86.9 FL (86-99); MONOCYTE (%) 10.4 % (3-12); MONOCYTE COUNT 0.5 K/uL (0-0.8); NEUTROPHIL COUNT 2.8 K/uL (1.8-6.4); PLATELET COUNT 202 K/uL (156-360); RBC DIS.WIDTH-CV 13.2 % (11.8-14.6); RBC DIS.WIDTH-SD 42.3 % (39-53); RED BLOOD COUNT 4.82 M/uL (4.00-5.50); WHITE BLOOD COUNT 5.1 K/uL (4.1-10.2)
[2017-09-18 06:23] LABS: CHLORIDE 102 MEQ/L (99-109); CREATININE 0.7 MG/DL (0.6-1.3); GFR ESTIMATE (CALCULATED) > 59 mL/min/ (58.99-99999); GLUCOSE 168 mg/dL (70-99); POTASSIUM 3.6 MEQ/L (3.7-5.4); SODIUM 133 MEQ/L (136-147); UREA NITROGEN (BUN) 8 mg/dL (9-23)
[2017-09-18 07:40] VITALS: BP 139/87
[2017-09-18 16:01] VITALS: BP 177/92
[2017-09-19 00:32] VITALS: BP 141/76
[2017-09-19 06:11] LABS: HEMATOCRIT 38.6 % (38.0-50.0); HEMOGLOBIN 13.1 G/DL (12.5-16.6); MCH 29.7 PG (29.0-34.0); MCHC 33.9 G/DL (30.0-36.0); MCV 87.5 FL (86-99); PLATELET COUNT 212 K/uL (156-360); RBC DIS.WIDTH-CV 13.3 % (11.8-14.6); RBC DIS.WIDTH-SD 42.6 % (39-53); RED BLOOD COUNT 4.41 M/uL (4.00-5.50); WHITE BLOOD COUNT 4.5 K/uL (4.1-10.2)
[2017-09-19 06:39] LABS: CHLORIDE 101 MEQ/L (99-109); CREATININE 0.9 MG/DL (0.6-1.3); GFR ESTIMATE (CALCULATED) > 59 mL/min/ (58.99-99999); MAGNESIUM 1.9 mg/dl (1.3-2.7); POTASSIUM 4.1 MEQ/L (3.7-5.4); SODIUM 134 MEQ/L (136-147); UREA NITROGEN (BUN) 9 mg/dL (9-23)
[2017-09-19 06:42] LABS: GLUCOSE 339 mg/dL (70-99)
[2017-09-19 08:08] VITALS: BP 130/79
[2017-09-19 16:47] VITALS: BP 128/79
[2017-09-19 23:33] VITALS: BP 152/85
[2017-09-20 08:31] VITALS: BP 149/95
[2017-09-20 16:16] VITALS: BP 170/90
[2017-09-20 23:20] VITALS: BP 142/88
[2017-09-21 07:10] LABS: HEMATOCRIT 39.6 % (38.0-50.0); HEMOGLOBIN 13.6 G/DL (12.5-16.6); MCH 29.8 PG (29.0-34.0); MCHC 34.3 G/DL (30.0-36.0); MCV 86.8 FL (86-99); PLATELET COUNT 229 K/uL (156-360); RBC DIS.WIDTH-CV 13.3 % (11.8-14.6); RBC DIS.WIDTH-SD 42.5 % (39-53); RED BLOOD COUNT 4.56 M/uL (4.00-5.50)
[2017-09-21 07:38] LABS: CHLORIDE 100 MEQ/L (99-109); CREATININE 0.8 MG/DL (0.6-1.3); GFR ESTIMATE (CALCULATED) > 59 mL/min/ (58.99-99999); GLUCOSE 250 mg/dL (70-99); POTASSIUM 4.4 MEQ/L (3.7-5.4); SODIUM 133 MEQ/L (136-147); UREA NITROGEN (BUN) 9 mg/dL (9-23)
[2017-09-21] MEDS ORDERED: HARVONI 90-4001 EACH PO (08:09)
[2017-09-21 08:55] VITALS: BP 128/93
[2017-09-21 15:15] VITALS: BP 156/87
[2017-09-21 23:22] VITALS: BP 128/80
[2017-09-22 11:24] VITALS: BP 131/80
[2017-09-22] MEDS ORDERED: SENNA LAX8.6 MG PO (12:20)
[2017-09-22] MEDS ORDERED: NIFEDIPINE ER30 MG PO (12:20)
[2017-09-22] MEDS ORDERED: OXYCODONE-APAP1 EAC6 PO (12:20)
[2017-09-22] MEDS ORDERED: AUGMENTIN875 MG PO (12:20)
[2017-09-23 21:47] LABS: HCV RNA (IU/mL) <15 IU/mL (())
[2017-09-24 14:21] LABS: HCV RNA (LOG IU/mL) <1.18 (())
== END 2017-09-22 13:34 | disposition home or self-care (01) | DRG 617 ==
LOC: EME 20:04 → 3EAST 09-17 01:15 → EDOF 09-17 01:15 → ENRESERV 09-17 01:27 → 3EAST 09-17 02:15
PROVIDERS: Hospitalist; Internal Medicine; Physician Assistant
PROC: 0QBN0ZZ Excision of Right Metatarsal, Open Approach (ICD-10-PCS; principal; 2017-09-19)
PROC: 0Y6P0Z0 Detachment at Right 1st Toe, Complete, Open Approach (ICD-10-PCS; principal; 2017-09-19)
DX: E11.69 Type 2 diabetes mellitus with other specified complication (principal); M86.171 Other acute osteomyelitis, right ankle and foot; M00.9 Pyogenic arthritis, unspecified; M86.671 Other chronic osteomyelitis, right ankle and foot; E11.42 Type 2 diabetes mellitus with diabetic polyneuropathy; E11.621 Type 2 diabetes mellitus with foot ulcer; L97.518 Non-pressure chronic ulcer of other part of right foot with other specified severity; E11.51 Type 2 diabetes mellitus with diabetic peripheral angiopathy without gangrene; B95.1 Streptococcus, group B, as the cause of diseases classified elsewhere; B95.61 Methicillin susceptible Staphylococcus aureus infection as the cause of diseases classified elsewhere; E86.0 Dehydration; I10 Essential (primary) hypertension; F17.210 Nicotine dependence, cigarettes, uncomplicated; Z86.19 Personal history of other infectious and parasitic diseases; Z79.4 Long term (current) use of insulin; Z86.14 Personal history of Methicillin resistant Staphylococcus aureus infection
CPT/HCPCS: 71046; 73630; 73720; 80048; 80053; 80202; 81003; 82948; 83036; 83605; 83690; 83735; 84484; 85025; 85027; 85610; 85651; 85730; 86140; 87040; 87070; 87075; 87077; 87147; 87186; 87205; 87522 90; 87641; 88305; 88311; 93926; 99281; 99285; J0690; J1650; J1815; J2405; J2543; J3010; J3370; J7030; J7050; S0020

== ENCOUNTER → 2017-10-03 | Outpatient (CLI) | payer OTHER ==
[~2017-10-03] MED LIST changes: +AMMONIUM LACTA140 GM TP; +HARVONI 90-4001 EACH PO; +NIFEDIPINE ER30 MG PO; +OXYCODONE-APAP1 EAC6 PO; +PRILOSEC OTC20 MG PO; +SENNA LAX8.6 MG PO
== END | disposition home or self-care (01) ==
LOC: CDC 11:49
DX: Z01.810 Encounter for preprocedural cardiovascular examination (principal); I70.209 Unspecified atherosclerosis of native arteries of extremities, unspecified extremity
CPT/HCPCS: 93000

== ENCOUNTER 2017-10-09 16:38 | Inpatient (IN) | payer OTHER ==
[~2017-10-09] VITALS: Ht 190.5 cm; Wt 94.9 kg
[2017-10-09 17:06] LABS: BASOPHIL (%) 0.6 % (0-1); BASOPHIL COUNT 0.1 K/uL (0-0.1); EOSINOPHIL (%) 5.6 % (0-5); EOSINOPHIL COUNT 0.5 K/uL (0-0.3); HEMOGLOBIN 12.6 G/DL (12.5-16.6); IMMATURE GRANULOCYTE (%) 0.4 % (0.0-0.7); LYMPHOCYTE COUNT 2.8 K/uL (1.0-2.8); MCH 29.6 PG (29.0-34.0); MCHC 34.1 G/DL (30.0-36.0); MCV 86.9 FL (86-99); MONOCYTE (%) 9.4 % (3-12); MONOCYTE COUNT 0.8 K/uL (0-0.8); NEUTROPHIL COUNT 4.3 K/uL (1.8-6.4); PLATELET COUNT 234 K/uL (156-360); RBC DIS.WIDTH-CV 13.4 % (11.8-14.6); RBC DIS.WIDTH-SD 42.1 % (39-53); RED BLOOD COUNT 4.26 M/uL (4.00-5.50); WHITE BLOOD COUNT 8.4 K/uL (4.1-10.2)
[2017-10-09 17:20] LABS: CHLORIDE 104 mEq/L (99-109); POTASSIUM 4.5 mEq/L (3.7-5.4); SODIUM 136 mEq/L (136-147)
[2017-10-09 17:22] LABS: GLUCOSE 353 mg/dL (70-99)
[2017-10-09 17:26] LABS: CREATININE 1.6 mg/dL (0.6-1.3); GFR ESTIMATE (CALCULATED) 58 mL/min/ (58.99-99999)
[2017-10-09 17:27] LABS: UREA NITROGEN (BUN) 21 mg/dL (9-23)
[2017-10-09] MEDS ORDERED: CEFADROXIL500 MG PO (18:30)
[2017-10-09] MEDS ORDERED: CILOSTAZOL100 MG PO (18:31)
[2017-10-09] MEDS ORDERED: PERCOCET 10/1 TABLET PO (19:08)
[2017-10-09] MEDS ORDERED: FLEXERIL10 MG PO (19:08)
[2017-10-09] MEDS ORDERED: SENNA8.6 MG PO (19:09)
[2017-10-09 21:52] LABS: APPEARANCE CLEAR ((CLEAR)); BILIRUBIN NEGATIVE; BLOOD NEGATIVE; COLOR YELLOW ((YELLOW)); GLUCOSE (STRIP) >=500; KETONES NEGATIVE; LEUKOCYTES NEGATIVE; NITRITE NEGATIVE; PROTEIN (STRIP) NEGATIVE; SPECIFIC GRAVITY 1.022 (1.000-1.030); UCUL ADDED? NO; UROBILINOGEN 0.2 MG/DL (0.2-1.0)
[2017-10-09 22:21] VITALS: BP 154/84
[2017-10-10 04:28] VITALS: BP 152/76
[2017-10-10 06:14] LABS: BASOPHIL (%) 0.5 % (0-1); EOSINOPHIL (%) 7.3 % (0-5); EOSINOPHIL COUNT 0.5 K/uL (0-0.3); HEMATOCRIT 33.6 % (38.0-50.0); HEMOGLOBIN 11.3 G/DL (12.5-16.6); IMMATURE GRANULOCYTE (%) 0.2 % (0.0-0.7); LYMPHOCYTE (%) 28.4 % (15-42); LYMPHOCYTE COUNT 1.7 K/uL (1.0-2.8); MCH 29.4 PG (29.0-34.0); MCHC 33.6 G/DL (30.0-36.0); MCV 87.3 FL (86-99); MONOCYTE (%) 10.8 % (3-12); MONOCYTE COUNT 0.7 K/uL (0-0.8); NEUTROPHIL (%) 52.8 % (45-76); NEUTROPHIL COUNT 3.2 K/uL (1.8-6.4); PLATELET COUNT 199 K/uL (156-360); RBC DIS.WIDTH-CV 13.4 % (11.8-14.6); RBC DIS.WIDTH-SD 42.7 % (39-53); RED BLOOD COUNT 3.85 M/uL (4.00-5.50); WHITE BLOOD COUNT 6.1 K/uL (4.1-10.2)
[2017-10-10 06:42] LABS: CHLORIDE 105 MEQ/L (99-109); GLUCOSE 208 mg/dL (70-99); POTASSIUM 4.2 MEQ/L (3.7-5.4); SODIUM 138 MEQ/L (136-147); UREA NITROGEN (BUN) 14 mg/dL (9-23)
[2017-10-10 06:46] LABS: CREATININE 0.8 MG/DL (0.6-1.3); GFR ESTIMATE (CALCULATED) > 59 mL/min/ (58.99-99999)
[2017-10-10 07:47] VITALS: BP 170/90
[2017-10-10 11:30] VITALS: BP 162/88
[2017-10-10 17:13] VITALS: BP 172/87
[2017-10-10 19:39] VITALS: BP 173/98
[2017-10-10 23:46] VITALS: BP 166/103
[2017-10-11 03:16] VITALS: BP 144/83
[2017-10-11 07:13] LABS: HEMATOCRIT 39.7 % (38.0-50.0); MCH 29.6 PG (29.0-34.0); MCHC 34.3 G/DL (30.0-36.0); MCV 86.3 FL (86-99); PLATELET COUNT 223 K/uL (156-360); RBC DIS.WIDTH-CV 13.2 % (11.8-14.6); RBC DIS.WIDTH-SD 41.4 % (39-53); WHITE BLOOD COUNT 4.9 K/uL (4.1-10.2)
[2017-10-11 07:14] LABS: HEMOGLOBIN 13.6 G/DL (12.5-16.6)
[2017-10-11 07:30] VITALS: BP 170/91
[2017-10-11 07:31] LABS: C-REACTIVE PROTEIN 9.2 MG/L (0-10); CHLORIDE 101 MEQ/L (99-109); CREATININE 0.8 MG/DL (0.6-1.3); GFR ESTIMATE (CALCULATED) > 59 mL/min/ (58.99-99999); GLUCOSE 121 mg/dL (70-99); POTASSIUM 4.3 MEQ/L (3.7-5.4); SODIUM 138 MEQ/L (136-147); UREA NITROGEN (BUN) 11 mg/dL (9-23)
[2017-10-11 10:16] LABS: ERTH.SED.RATE 89 MM/HR (0-20)
[2017-10-11 11:31] VITALS: BP 138/78
[2017-10-11 16:57] VITALS: BP 168/89
[2017-10-11 20:46] VITALS: BP 159/98
[2017-10-12 00:22] VITALS: BP 139/80
[2017-10-12 03:19] VITALS: BP 131/70
[2017-10-12 08:36] VITALS: BP 126/76
[2017-10-12 09:23] LABS: CHLORIDE 96 MEQ/L (99-109); GFR ESTIMATE (CALCULATED) > 59 mL/min/ (58.99-99999); POTASSIUM 4.6 MEQ/L (3.7-5.4); SODIUM 132 MEQ/L (136-147); UREA NITROGEN (BUN) 14 mg/dL (9-23)
[2017-10-12 09:24] LABS: GLUCOSE 389 mg/dL (70-99)
[2017-10-12 15:30] VITALS: BP 105/67
[2017-10-12 21:31] VITALS: BP 127/67
[2017-10-12 23:08] VITALS: BP 133/80
[2017-10-13 08:00] VITALS: BP 124/86
[2017-10-13 08:59] LABS: HEMATOCRIT 42.9 % (38.0-50.0); HEMOGLOBIN 14.2 G/DL (12.5-16.6); MCH 28.9 PG (29.0-34.0); MCHC 33.1 G/DL (30.0-36.0); MCV 87.4 FL (86-99); PLATELET COUNT 262 K/uL (156-360); RBC DIS.WIDTH-CV 13.2 % (11.8-14.6); RBC DIS.WIDTH-SD 42.3 % (39-53); RED BLOOD COUNT 4.91 M/uL (4.00-5.50); WHITE BLOOD COUNT 6.1 K/uL (4.1-10.2)
[2017-10-13 09:13] LABS: CHLORIDE 98 MEQ/L (99-109); CREATININE 0.9 MG/DL (0.6-1.3); GFR ESTIMATE (CALCULATED) > 59 mL/min/ (58.99-99999); GLUCOSE 243 mg/dL (70-99); MAGNESIUM 1.8 mg/dl (1.3-2.7); POTASSIUM 4.8 MEQ/L (3.7-5.4); SODIUM 138 MEQ/L (136-147); UREA NITROGEN (BUN) 14 mg/dL (9-23)
[2017-10-13] MEDS ORDERED: NICOTINE PATCH1 EAC1 TD (09:38)
[2017-10-13] MEDS ORDERED: CEPHALEXIN500 MG PO (09:38)
[2017-10-13] MEDS ORDERED: HYDROCHLOROTHIA25 MG PO (09:38)
[2017-10-13] MEDS ORDERED: OXYCODONE-APAP1 EACH PO (09:38)
[2017-10-13 12:28] VITALS: BP 120/77
== END 2017-10-13 12:32 | disposition home or self-care (01) | DRG 908 ==
LOC: EME 16:38 → EDOF 21:06 → 3EAST 21:06 → ENRESERV 21:10 → 3EAST 22:00
PROVIDERS: Hospitalist; Internal Medicine; Internal Medicine Infectious Disease
PROC: 0QBN0ZZ Excision of Right Metatarsal, Open Approach (ICD-10-PCS; principal; 2017-10-09)
DX: T81.30XA Disruption of wound, unspecified, initial encounter (principal); T81.4XXA Infection following a procedure, initial encounter; T87.81 Dehiscence of amputation stump; E87.2 Acidosis; E11.51 Type 2 diabetes mellitus with diabetic peripheral angiopathy without gangrene; E11.42 Type 2 diabetes mellitus with diabetic polyneuropathy; E11.622 Type 2 diabetes mellitus with other skin ulcer; E11.628 Type 2 diabetes mellitus with other skin complications; I10 Essential (primary) hypertension; F17.200 Nicotine dependence, unspecified, uncomplicated; E11.69 Type 2 diabetes mellitus with other specified complication; M86.8X7 Other osteomyelitis, ankle and foot; B18.2 Chronic viral hepatitis C; E78.5 Hyperlipidemia, unspecified; N17.9 Acute kidney failure, unspecified; Z79.4 Long term (current) use of insulin; Z89.411 Acquired absence of right great toe; E11.65 Type 2 diabetes mellitus with hyperglycemia; E11.621 Type 2 diabetes mellitus with foot ulcer; I70.201 Unspecified atherosclerosis of native arteries of extremities, right leg; L03.115 Cellulitis of right lower limb
CPT/HCPCS: 71046; 73630; 80048; 80202; 81003; 82948; 83605; 83735; 85025; 85027; 85651; 86140; 87040; 87070; 87075; 87205; 88305; 88311; 99281; 99285; J0295; J0690; J1650; J1815; J2250; J2405; J3010; J3370; J7030; J7050; S0020